=== PATIENT | male | born 1980 | race Caucasian/White ===

== ENCOUNTER 2018-04-11 12:02 | Emergency (ER) | payer MEDICARE, MEDICAID, OTHER ==
[~2018-04-11] VITALS: Ht 182.9 cm; Wt 76.6 kg
[~2018-04-11 12:02] MED LIST: METH-360 PO
[2018-04-11] MEDS ORDERED: ondansetron/PF 4mg/2ml inj IV ONE (13:20)
[2018-04-11] MEDS ORDERED: normal saline 1000ML IV soln IVB ONE (13:20)
[2018-04-11] MEDS ORDERED: iohexol 300mg/ml 100ml inj. ONE (13:23)
[2018-04-11] MEDS: MORPHINE 2MG in 2ml NS syringe IV PRN ×2 (13:28→14:08)
[2018-04-11] MEDS ORDERED: HYDROcodone/acetaminophen 10/325mg tab PO ONE (14:50)
[2018-04-11] MEDS ORDERED: oxyCODONE/APAP 10/325mg tablet PO ONE (14:55)
[2018-04-11] MEDS ORDERED: ONDA4TAB9 PO (14:56)
[2018-04-11] MEDS ORDERED: OXYC-150 PO (14:56)
[2018-04-11 15:11] VITALS: BP 136/86
== END 2018-04-11 15:12 | disposition home or self-care (01) ==
LOC: ER 12:03
DX: S06.0X9A Concussion with loss of consciousness of unspecified duration, initial encounter (principal); S30.1XXA Contusion of abdominal wall, initial encounter; M79.1 Myalgia; M54.5 Low back pain; G89.29 Other chronic pain; M51.36 Other intervertebral disc degeneration, lumbar region; Y08.89XA Assault by other specified means, initial encounter; Y93.89 Activity, other specified; Y92.009 Unspecified place in unspecified non-institutional (private) residence as the place of occurrence of the external cause; Y99.8 Other external cause status
CPT/HCPCS: 70450; 71260; 74177; 93005; 96374; 96375; 96376; 99284; J2274; J2405; J7030; Q9967

== ENCOUNTER 2018-06-12 04:44 | Emergency (ER) | payer MEDICARE, MEDICAID, OTHER ==
[~2018-06-12] VITALS: Ht 182.9 cm; Wt 70.5 kg
[~2018-06-12 04:44] MED LIST changes: +OXYC-150 PO
[2018-06-12 04:53] VITALS: BP 133/83
[2018-06-12] MEDS ORDERED: HYDROcodone/acetaminophen 10/325mg tab PO ONE (05:15)
[2018-06-12] MEDS ORDERED: cloNIDine 0.1 mg tablet PO ONE (05:15)
[2018-06-12] MEDS ORDERED: ondansetron 4mg rapidly disintigrating tab PO ONE (05:15)
[2018-06-12 05:23] LABS: BASOPHILS # (AUTO) 0.1 X10'3 (0-0.2); BASOPHILS % (AUTO) 1.1 % (0-1); EOSINOPHILS # (AUTO) 0.3 X10'3 (0-0.9); EOSINOPHILS % (AUTO) 3.5 % (0-6); HEMATOCRIT 43.3 % (42.0-52.0); HEMOGLOBIN 14.6 g/dl (14.0-17.9); LYMPHOCYTES # (AUTO) 2.8 X10'3 (1.1-4.8); LYMPHOCYTES % (AUTO) 37.4 % (21-51); MEAN CORPUSCULAR HEMOGLOBIN 31.6 PG (27.0-31.0); MEAN CORPUSCULAR HGB CONC 33.7 % (33.0-36.5); MEAN CORPUSCULAR VOLUME 93.8 FL (78-98); MEAN PLATELET VOLUME 8.7 FL (7.4-10.4); MONOCYTES # (AUTO) 0.4 X10'3 (0-0.9); MONOCYTES % (AUTO) 5.7 % (2-12); NEUTROPHILS # (AUTO) 3.9 X10'3 (1.8-7.7); NEUTROPHILS % (AUTO) 52.3 % (42-75); PLATELET COUNT 262 X10'3 (140-440); RED BLOOD COUNT 4.61 X10'6 (4.70-6.10); RED CELL DISTRIBUTION WIDTH 13.3 % (11.5-14.5); WHITE BLOOD COUNT 7.5 X10'3 (4.5-11.0)
[2018-06-12 05:39] LABS: ALANINE AMINOTRANSFERASE 27 U/L (12-78); ALBUMIN 4.2 G/DL (3.4-5.0); ALBUMIN/GLOBULIN RATIO 1.3 (1.1-1.5); ALKALINE PHOSPHATASE 51 IU/L (46-116); ANION GAP 10 (8-16); ASPARTATE AMINO TRANSFERASE 10 U/L (10-37); BILIRUBIN,TOTAL 0.4 MG/DL (0.1-1.0); BLOOD UREA NITROGEN 8 MG/DL (7-18); BUN/CREATININE RATIO 7.8 (5.4-32.0); CALCIUM 9.6 MG/DL (8.5-10.1); CHLORIDE 106 MMOL/L (99-107); CREATINE KINASE 124 U/L (39-308); CREATININE 1.03 MG/DL (0.60-1.10); GLUCOSE 93 MG/DL (70-104); LIPASE 402 U/L (73-393); POTASSIUM 3.7 MMOL/L (3.5-5.1); SODIUM 142 MMOL/L (135-145); TOTAL CARBON DIOXIDE 25.6 MMOL/L (24-32); TOTAL PROTEIN 7.5 G/DL (6.4-8.2); eGFR 81 ML/MIN
[2018-06-12 05:41] LABS: PROTHROMBIN TIME 10.5 SECONDS (9.0-12.0)
[2018-06-12 06:05] LABS: CLARITY,URINE CLEAR (Clear); COLOR,URINE YELLOW (Yellow); GLUCOSE, URINE NEGATIVE (Neg); KETONES,URINE NEGATIVE (Neg); LEUKOCYTE ESTERASE ,URINE NEGATIVE (Neg); NITRITES, URINE NEGATIVE (Neg); OCCULT BLOOD,URINE NEGATIVE (Neg); PH,URINE 6.5 (4.8-8.0); PROTEIN,URINE NEGATIVE (Neg); UROBILINOGEN,URINE 0.2 E.U/dL (0.2-1.0)
[2018-06-12 06:13] LABS: UA COLLECTION TYPE CLN CATCH MIDSTREAM
== END 2018-06-12 06:07 | disposition home or self-care (01) ==
LOC: ER 04:45
DX: F11.23 Opioid dependence with withdrawal (principal); R10.12 Left upper quadrant pain; G89.29 Other chronic pain; Z98.890 Other specified postprocedural states; Z79.899 Other long term (current) drug therapy
CPT/HCPCS: 36415; 80053; 81003; 82550; 83690; 85025; 85610; 99284

== ENCOUNTER 2019-05-22 07:11 | Emergency (ER) | payer MEDICARE, MEDICAID, OTHER ==
[~2019-05-22] VITALS: Ht 182.9 cm; Wt 79.5 kg
[2019-05-22] MEDS ORDERED: famotidine/PF 10 mg/ml inj IV ONE (07:20)
[2019-05-22] MEDS ORDERED: normal saline 1000ML IV soln IVB ONE (07:20)
[2019-05-22] MEDS ORDERED: ondansetron/PF 4mg/2ml inj IV ONE (07:20)
[2019-05-22] MEDS ORDERED: mag hydrox/Alum hydrox/simeth 30ml oral suspension PO ONE (07:25)
[2019-05-22] MEDS ORDERED: proCHLORperazine 10 MG/2 ml inj IV ONE (07:25)
[2019-05-22] MEDS ORDERED: ketorolac trometh. 30mg/ml inj. IV ONE (07:25)
[2019-05-22] MEDS ORDERED: LIDOcaine Viscous 15ml cup PO ONE (07:25)
[2019-05-22] MEDS ORDERED: acetaminophen 325mg tablet PO ONE (08:05)
[2019-05-22] MEDS ORDERED: diphenhydrAMINE 50 mg/ml inj IV ONE (08:05)
[2019-05-22] MEDS ORDERED: LORazepam 2 mg/ml vial IV ONE (08:05)
[2019-05-22] MEDS ORDERED: sucralfate 1gm/10ml UD suspension PO ONE (09:05)
[2019-05-22] MEDS ORDERED: pantoprazole 40 MG vial IV ONE (09:05)
[2019-05-22] MEDS ORDERED: SUMAtriptan succ. 6 MG/0.5ml vial SQ ONE (09:15)
[2019-05-22] MEDS ORDERED: normal saline 1000ml 1,000 ML IV ONE (09:15)
[2019-05-22] MEDS ORDERED: ESOMEPRAZOLE 40 MG VIAL IV ONE (10:00)
[2019-05-22] MEDS ORDERED: FAMO-128 PO (10:22)
[2019-05-22] MEDS ORDERED: ONDA8TAB6 PO (10:22)
[2019-05-22 10:42] VITALS: BP 127/80
== END 2019-05-22 10:44 | disposition home or self-care (01) ==
LOC: ER 07:12
DX: G43.909 Migraine, unspecified, not intractable, without status migrainosus (principal); R11.2 Nausea with vomiting, unspecified; G89.29 Other chronic pain; Z79.899 Other long term (current) drug therapy; Z98.890 Other specified postprocedural states
CPT/HCPCS: 96361; 96372; 96374; 96375; 99284; J0780; J1200; J1885; J2060; J2405; J3490; J7030; 99283; J3030

== ENCOUNTER 2019-12-07 11:21 | Emergency (ER) | payer MEDICARE, MEDICAID ==
[~2019-12-07] VITALS: Ht 182.9 cm; Wt 73.0 kg
[~2019-12-07 11:21] MED LIST changes: +FAMO-128 PO; +ONDA8TAB6 PO
[2019-12-07 11:28] VITALS: BP 133/96
[2019-12-07] MEDS ORDERED: AMIT-189 PO (12:34)
[2019-12-07] MEDS ORDERED: KEP500T PO (12:34)
[2019-12-07] MEDS ORDERED: OXYC-150 PO (12:34)
[2019-12-07] MEDS ORDERED: NORT25CA5 PO (12:45)
--- NOTE | 2019-12-07 12:49 | NUR ---
RX CHANGED BY PROVIDER FROM AMITRIPTYLINE TO NORTRIPTYLINE
== END 2019-12-07 12:50 | disposition home or self-care (01) ==
LOC: ER 11:22
DX: G89.29 Other chronic pain (principal); F32.9 Major depressive disorder, single episode, unspecified; G40.909 Epilepsy, unspecified, not intractable, without status epilepticus; Z76.0 Encounter for issue of repeat prescription; Z98.890 Other specified postprocedural states; Z79.899 Other long term (current) drug therapy
CPT/HCPCS: 99284

== ENCOUNTER 2020-02-27 07:36 | Emergency (ER) | payer MEDICARE, MEDICAID ==
[~2020-02-27] VITALS: Ht 182.9 cm; Wt 77.3 kg
[~2020-02-27 07:36] MED LIST changes: +KEP500T PO; +NORT25CA5 PO
[2020-02-27 07:37] VITALS: BP 130/85
[2020-02-27] MEDS ORDERED: HYDR-3965 PO (07:46)
[2020-02-27] MEDS ORDERED: CYCL-1 PO (07:46)
== END 2020-02-27 07:53 | disposition home or self-care (01) ==
LOC: ER 07:36
DX: M54.5 Low back pain (principal); G89.29 Other chronic pain; Z98.890 Other specified postprocedural states
CPT/HCPCS: 99284

== ENCOUNTER 2020-03-12 08:38 | Emergency (ER) | payer OTHER, MEDICARE, MEDICAID ==
[~2020-03-12] VITALS: Ht 182.9 cm; Wt 79.5 kg
[~2020-03-12 08:38] MED LIST changes: +CYCL-1 PO
[2020-03-12] MEDS ORDERED: HYDROcodone/acetaminophen 5mg/325mg tablet PO ONE (10:05)
[2020-03-12] MEDS ORDERED: HYDR-3965 PO (11:04)
[2020-03-12 11:22] VITALS: BP 122/72
== END 2020-03-12 11:28 | disposition home or self-care (01) ==
LOC: ER 08:38
DX: G89.29 Other chronic pain (principal); M54.5 Low back pain; Z98.890 Other specified postprocedural states; Z79.899 Other long term (current) drug therapy
CPT/HCPCS: 72131; 99284

== ENCOUNTER 2023-02-24 08:08 | Emergency (ER) | payer OTHER, MEDICARE, MEDICAID ==
[~2023-02-24] VITALS: Ht 182.9 cm; Wt 77.3 kg
[2023-02-24] MEDS ORDERED: ibuprofen tablet 400 MG TABLET PO ONE (09:00)
[2023-02-24] MEDS ORDERED: oxyCODONE/APAP 5-325mg tablet PO ONE (09:00)
[2023-02-24] MEDS ORDERED: LIDO-15 TP (09:55)
[2023-02-24] MEDS ORDERED: MELO-102 PO (09:55)
[2023-02-24 10:09] VITALS: BP 122/78
== END 2023-02-24 10:11 | disposition home or self-care (01) ==
LOC: ER 08:09
DX: G89.29 Other chronic pain (principal); M54.59 Other low back pain; Z79.899 Other long term (current) drug therapy; Z79.1 Long term (current) use of non-steroidal anti-inflammatories (NSAID); Z79.2 Long term (current) use of antibiotics
CPT/HCPCS: 72131; 99284

== ENCOUNTER 2024-01-27 09:09 | Outpatient (CLI) | payer MEDICARE, MEDICAID ==
[~2024-01-27 09:09] MED LIST changes: +LIDO-15 TP; +MELO-102 PO
== END 2024-01-27 23:59 | disposition home or self-care (01) ==
LOC: RAD 09:09
PROVIDERS: ATTEND Family Medicine
DX: K80.20 Calculus of gallbladder without cholecystitis without obstruction (principal)
CPT/HCPCS: 76700

== ENCOUNTER 2024-02-26 19:02 | Inpatient (IN) | payer MEDICARE, MEDICAID ==
[~2024-02-26] VITALS: Ht 182.9 cm; Wt 74.1 kg
[2024-02-26 20:07] LABS: BASOPHILS % (AUTO) 0.3 % (0-1); EOSINOPHILS % (AUTO) 0.2 % (0-6); HEMATOCRIT 45.5 % (42.0-52.0); HEMOGLOBIN 15.5 g/dl (14.0-17.9); LYMPHOCYTES # (AUTO) 0.9 X10'3 (1.1-4.8); LYMPHOCYTES % (AUTO) 6.3 % (21-51); MEAN CORPUSCULAR HEMOGLOBIN 31.1 PG (27.0-31.0); MEAN CORPUSCULAR HGB CONC 34.2 g/dL (33.0-36.5); MEAN CORPUSCULAR VOLUME 91.1 FL (78-98); MEAN PLATELET VOLUME 8.6 FL (7.4-10.4); MONOCYTES # (AUTO) 0.6 X10'3 (0-0.9); MONOCYTES % (AUTO) 4.2 % (2-12); NEUTROPHILS # (AUTO) 12.7 X10'3 (1.8-7.7); PLATELET COUNT 294 X10'3 (140-440); RED BLOOD COUNT 4.99 X10'6 (4.70-6.10); RED CELL DISTRIBUTION WIDTH 13.1 % (11.5-14.5); WHITE BLOOD COUNT 14.3 X10'3 (4.5-11.0)
[2024-02-26 20:18] LABS: ALBUMIN 4.3 G/DL (3.4-5.0); ANION GAP 17 (8-16); BLOOD UREA NITROGEN 13 MG/DL (7-18); BUN/CREATININE RATIO 11.4 (10.0-20.0); CHLORIDE 102 MMOL/L (99-107); CREATININE 1.14 MG/DL (0.60-1.10); GLUCOSE 116 MG/DL (70-104); LIPASE 25 U/L (16-77); POTASSIUM 3.1 MMOL/L (3.5-5.1); SODIUM 138 MMOL/L (135-145); eCRCL 87 ML/MIN; eGFR 70 ML/MIN
[2024-02-26] MEDS: ondansetron/PF 4mg/2ml inj IV ONE (20:40)
[2024-02-26] MEDS: normal saline 1000ML IV soln IVB ONE (20:40)
[2024-02-26] MEDS: diphenhydrAMINE 50 mg/ml inj IV ONE (21:02)
[2024-02-26] MEDS: metoclopramide 5 mg/ml inj IV ONE (21:02)
[2024-02-26 21:07] LABS: ETHANOL < 10 MG/DL (<10)
[2024-02-26] MEDS ORDERED: iohexol 300mg/ml 100ml inj. ONE (21:19)
[2024-02-26] MEDS: morphine 4 MG/ML inj SYRINge IV ONE (22:51)
[2024-02-26] MEDS ORDERED: morphine 2 MG/ML inj. syringe IV PRN (23:10)
[2024-02-26 23:19] LABS: ALANINE AMINOTRANSFERASE 29 U/L (12-78); ALBUMIN/GLOBULIN RATIO 1.1 (1.1-1.5); ALKALINE PHOSPHATASE 62 IU/L (46-116); ASPARTATE AMINO TRANSFERASE 19 U/L (10-37); BILIRUBIN,DIRECT 0.3 MG/DL (0-0.3); BILIRUBIN,TOTAL 1.2 MG/DL (0.1-1.0); TOTAL PROTEIN 8.1 G/DL (6.4-8.2)
[2024-02-26] MEDS ORDERED: potassium Cl 40MEQ/1/2NS 520ml 520 ML IV PRN (23:50)
[2024-02-26] MEDS ORDERED: HYDROcodone/acetaminophen 5mg/325mg tablet PO PRN (23:50)
[2024-02-26] MEDS ORDERED: magnesium Cl slow-release 64mg tablet PO PRN (23:50)
[2024-02-26] MEDS ORDERED: magnesium 2GM in 50ml NS 50 ML IV PRN (23:50)
[2024-02-26] MEDS ORDERED: magnesium 4gm in 100ml NS 100 ML IV PRN (23:50)
[2024-02-26] MEDS ORDERED: acetaminophen 325mg tablet PO PRN ×2 (23:50)
[2024-02-26] MEDS ORDERED: potassium Cl 20 mEq SR tablet PO PRN ×2 (23:50)
[2024-02-26 23:51] LABS: BILIRUBIN,URINE NEGATIVE (Neg); CLARITY,URINE CLEAR (Clear); COLOR,URINE YELLOW (Yellow); GLUCOSE, URINE NEGATIVE (Neg); KETONES,URINE 15 mg/dl (Neg); LEUKOCYTE ESTERASE ,URINE NEGATIVE (Neg); NITRITES, URINE NEGATIVE (Neg); OCCULT BLOOD,URINE NEGATIVE (Neg); PROTEIN,URINE NEGATIVE (Neg); UROBILINOGEN,URINE 0.2 E.U/dL (0.2-1.0)
[2024-02-26] MEDS: potassium Cl 20mEq in D5-NS 1,000 ML IV SCH (23:51)
[2024-02-26 23:52] LABS: UA COLLECTION TYPE URINAL
[2024-02-26] MEDS: piperacillin/tazo 4.5gm/100ml 100 ML IV STA (23:52)
[2024-02-27] VITALS (17 sets, daily range): BP systolic 100–159; BP diastolic 63–112; PULSE 55–90; RESP 9–18; TEMP 97.2–99; O2SAT 94–100
[2024-02-27] MEDS ORDERED: piperacillin/tazo 3.375gm/50ml 50 ML IV SCH
[2024-02-27 00:04] LABS: URINE AMPHETAMINE SCREEN NEGATIVE (Neg); URINE BARBITUATE SCREEN NEGATIVE (Neg); URINE BENZODIAZEPINES SCREEN NEGATIVE (Neg); URINE CANNABINOID SCREEN POSITIVE (Neg); URINE COCAINE SCREEN NEGATIVE (Neg); URINE METHADONE SCREEN NEGATIVE (Neg); URINE OPIATE SCREEN NEGATIVE (Neg); URINE PHENCYCLIDINE SCREEN NEGATIVE (Neg)
[2024-02-27 01:11] LABS: BASOPHILS % (AUTO) 0.3 % (0-1); EOSINOPHILS % (AUTO) 0.3 % (0-6); HEMATOCRIT 39.5 % (42.0-52.0); HEMOGLOBIN 13.8 g/dl (14.0-17.9); LYMPHOCYTES # (AUTO) 0.9 X10'3 (1.1-4.8); LYMPHOCYTES % (AUTO) 9.5 % (21-51); MEAN CORPUSCULAR HEMOGLOBIN 31.7 PG (27.0-31.0); MEAN CORPUSCULAR VOLUME 90.6 FL (78-98); MEAN PLATELET VOLUME 8.4 FL (7.4-10.4); MONOCYTES # (AUTO) 0.5 X10'3 (0-0.9); NEUTROPHILS # (AUTO) 7.8 X10'3 (1.8-7.7); NEUTROPHILS % (AUTO) 84.9 % (42-75); PLATELET COUNT 237 X10'3 (140-440); RED BLOOD COUNT 4.37 X10'6 (4.70-6.10); WHITE BLOOD COUNT 9.1 X10'3 (4.5-11.0)
[2024-02-27] MEDS ORDERED: morphine 2 MG/ML inj. syringe IV PRN ×2 (01:20→07:40)
[2024-02-27] MEDS: HYDROcodone/acetaminophen 10/325mg tab PO PRN (01:55)
[2024-02-27] MEDS: normal saline 1000ml 1,000 ML IV SCH (02:00)
[2024-02-27] MEDS: ondansetron/PF 4mg/2ml inj IV PRN (04:41)
[2024-02-27] MEDS ORDERED: LIDOcaine 1% 30ml preserv. free vial ONE (07:20)
[2024-02-27 07:24] LABS: ALANINE AMINOTRANSFERASE 16 U/L (12-78); ALBUMIN 3.1 G/DL (3.4-5.0); ALBUMIN/GLOBULIN RATIO 0.9 (1.1-1.5); ALKALINE PHOSPHATASE 53 IU/L (46-116); ANION GAP 10 (8-16); ASPARTATE AMINO TRANSFERASE 12 U/L (10-37); BILIRUBIN,TOTAL 0.9 MG/DL (0.1-1.0); BLOOD UREA NITROGEN 10 MG/DL (7-18); BUN/CREATININE RATIO 9.9 (10.0-20.0); CALCIUM 7.9 MG/DL (8.5-10.1); CHLORIDE 110 MMOL/L (99-107); CREATININE 1.01 MG/DL (0.60-1.10); GLUCOSE 98 MG/DL (70-104); POTASSIUM 3.6 MMOL/L (3.5-5.1); SODIUM 142 MMOL/L (135-145); TOTAL PROTEIN 6.4 G/DL (6.4-8.2); eCRCL 99 ML/MIN; eGFR 81 ML/MIN
[2024-02-27] MEDS: ringers solution, lacted 1,000 ML IV SCH (07:40)
[2024-02-27] MEDS ORDERED: labetalol 20mg/4ml (5mg/ml) syringe IV PRN (07:40)
[2024-02-27] MEDS ORDERED: enalaprilat dihydrate 2.5mg/2ml vial IV PRN (07:40)
[2024-02-27] MEDS ORDERED: meperidine/PF 25mg/ml syringe IV PRN ×2 (07:40)
[2024-02-27] MEDS: morphine 2 MG/ML inj. syringe IV PRN (07:40)
[2024-02-27] MEDS ORDERED: ondansetron/PF 4mg/2ml inj IV PRN ×2 (07:40→11:00)
[2024-02-27] MEDS: piperacillin/tazo 3.375gm/50ml 50 ML IV SCH (07:40)
[2024-02-27] MEDS: heparin, porcine 5000 units/ml vial SQ SCH (07:43)
[2024-02-27] MEDS: INDOCYANINE GREEN 25 MG/10 ML VIAL IV ONE (07:52)
[2024-02-27] MEDS ORDERED: midazolam 1 mg/ML 2ml injection ONE ×2 (08:53→09:50)
[2024-02-27] MEDS ORDERED: fentaNYL/PF 50MCG/1 ML 2ML syringe ONE ×2 (08:53→10:11)
[2024-02-27] MEDS ORDERED: LIDOcaine 2% (20mg/ml) 5ml vial ONE (08:54)
[2024-02-27] MEDS ORDERED: propofol inj 20 ML IV ONE (08:54)
[2024-02-27] MEDS ORDERED: rocuronium 10mg/ml inj IV ONE (09:30)
[2024-02-27] MEDS ORDERED: sevoflurane 250ml liquid IH ONE (09:37)
[2024-02-27] MEDS: BUPIVAcaine/PF 2.5mg/ml (0.25%) 10ml vial ONE (10:15)
[2024-02-27] MEDS ORDERED: ondansetron/PF 4mg/2ml inj ONE (10:42)
[2024-02-27] MEDS ORDERED: ketorolac trometh. 30mg/ml inj. ONE (10:42)
[2024-02-27] MEDS ORDERED: acetaminophen 1,000mg/100ml IV 100 ML IV ONE (10:45)
[2024-02-27] MEDS ORDERED: morphine 4 MG/ML inj SYRINge ONE (10:58)
[2024-02-27] MEDS ORDERED: naloxone 0.4 mg/ml inj IV PRN (11:00)
[2024-02-27] MEDS ORDERED: HYDROcodone/acetaminophen 10/325mg tab PO PRN (11:00)
[2024-02-27] MEDS: meperidine/PF 25mg/ml syringe IV PRN (11:23)
[2024-02-27] MEDS: morphine 4 MG/ML inj SYRINge IV PRN (11:54)
[2024-02-27] MEDS: proCHLORperazine 10 MG/2 ml inj IV PRN (12:08)
[2024-02-28] MEDS: simethicone 125mg capsule PO PRN (00:14)
[2024-02-28] MEDS: ketorolac trometh. 30mg/ml inj. IV PRN (00:52)
[2024-02-28 02:00] VITALS: BP 123/72; PULSE 53; RESP 14; TEMP 97.8; O2SAT 98
[2024-02-28 06:00] VITALS: BP 121/64; PULSE 59; RESP 18; TEMP 98.8; O2SAT 97
[2024-02-28 07:20] LABS: BASOPHILS % (AUTO) 0.3 % (0-1); EOSINOPHILS % (AUTO) 0.4 % (0-6); HEMATOCRIT 36.9 % (42.0-52.0); HEMOGLOBIN 12.6 g/dl (14.0-17.9); LYMPHOCYTES # (AUTO) 1.7 X10'3 (1.1-4.8); MEAN CORPUSCULAR HEMOGLOBIN 31.4 PG (27.0-31.0); MEAN CORPUSCULAR HGB CONC 34.2 g/dL (33.0-36.5); MEAN CORPUSCULAR VOLUME 91.6 FL (78-98); MEAN PLATELET VOLUME 8.8 FL (7.4-10.4); MONOCYTES # (AUTO) 0.8 X10'3 (0-0.9); MONOCYTES % (AUTO) 10.7 % (2-12); NEUTROPHILS # (AUTO) 5.2 X10'3 (1.8-7.7); NEUTROPHILS % (AUTO) 66.6 % (42-75); PLATELET COUNT 214 X10'3 (140-440); RED BLOOD COUNT 4.03 X10'6 (4.70-6.10); RED CELL DISTRIBUTION WIDTH 13.2 % (11.5-14.5); WHITE BLOOD COUNT 7.9 X10'3 (4.5-11.0)
[2024-02-28 07:30] VITALS: RESP 18
[2024-02-28] MEDS: morphine 2 MG/ML inj. syringe IV PRN (07:32)
[2024-02-28 07:39] LABS: ALANINE AMINOTRANSFERASE 79 U/L (12-78); ALKALINE PHOSPHATASE 52 IU/L (46-116); ANION GAP 9 (8-16); ASPARTATE AMINO TRANSFERASE 53 U/L (10-37); BILIRUBIN,TOTAL 0.9 MG/DL (0.1-1.0); BLOOD UREA NITROGEN 7 MG/DL (7-18); BUN/CREATININE RATIO 7.5 (10.0-20.0); CALCIUM 8.1 MG/DL (8.5-10.1); CHLORIDE 108 MMOL/L (99-107); CREATININE 0.93 MG/DL (0.60-1.10); GLUCOSE 96 MG/DL (70-104); POTASSIUM 3.7 MMOL/L (3.5-5.1); SODIUM 140 MMOL/L (135-145); TOTAL CARBON DIOXIDE 22.8 MMOL/L (24-32); TOTAL PROTEIN 6.1 G/DL (6.4-8.2); eCRCL 107 ML/MIN; eGFR 89 ML/MIN
[2024-02-28 10:00] VITALS: BP 118/85; PULSE 74; RESP 16; TEMP 98.4; O2SAT 99
[2024-02-28 11:22] VITALS: RESP 18
[2024-02-28] MEDS ORDERED: TRAM50TA2 PO (11:35)
== END 2024-02-28 13:25 | disposition home or self-care (01) | DRG 418 ==
LOC: ER 19:02 → ED HOLD 23:50 → UNDOADMIN 02-27 00:25 → ORTHO 4S 02-27 01:30 → ED HOLD 02-27 01:30 → ORTHO 4S 02-28 02:26
PROVIDERS: ADMIT Internal Medicine; ATTEND Internal Medicine
PROC: BW2F1ZZ Computerized Tomography (CT Scan) of Neck using Low Osmolar Contrast (ICD-10-PCS; 2024-02-26)
PROC: 8E0W4CZ Robotic Assisted Procedure of Trunk Region, Percutaneous Endoscopic Approach (ICD-10-PCS; 2024-02-27)
PROC: 0FT44ZZ Resection of Gallbladder, Percutaneous Endoscopic Approach (ICD-10-PCS; principal; 2024-02-27 09:37)
DX: K80.00 Calculus of gallbladder with acute cholecystitis without obstruction (principal); E87.20 Acidosis, unspecified; G89.29 Other chronic pain; E87.6 Hypokalemia; K66.0 Peritoneal adhesions (postprocedural) (postinfection); M54.9 Dorsalgia, unspecified; Z79.899 Other long term (current) drug therapy; Z87.891 Personal history of nicotine dependence
CPT/HCPCS: 36415; 70491; 74176; 76700; 80048; 80053; 80076; 80305; 80320; 81003; 83605; 83690; 83735; 85025; 87040; 87081; 96365; 96375; 99285; A4215; A4618; A6402; A7000; G0378; J0131; J0780; J1100; J1200; J1885; J2175; J2250; J2270; J2405; J2543; J2704; J2710; J2765; J3010; J3480; J3490; J7030; J7120; Q9967

== ENCOUNTER 2024-03-21 13:34 | Emergency (ER) | payer MEDICARE, MEDICAID ==
[~2024-03-21] VITALS: Ht 182.9 cm; Wt 72.5 kg
[~2024-03-21 13:34] MED LIST changes: -CYCL-1 PO; -FAMO-128 PO; -KEP500T PO; -MELO-102 PO; -METH-360 PO; -NORT25CA5 PO; -ONDA8TAB6 PO; -OXYC-150 PO
[2024-03-21 13:46] VITALS: TEMP 97.8
[2024-03-21] MEDS: LIDOcaine 1% 30ml preserv. free vial IJ ONE (14:17)
[2024-03-21] MEDS ORDERED: CEPH-585 PO (15:34)
[2024-03-21 15:38] VITALS: BP 124/78; PULSE 77; RESP 14; O2SAT 100
== END 2024-03-21 15:40 | disposition home or self-care (01) ==
LOC: ER 13:35
DX: S61.012A Laceration without foreign body of left thumb without damage to nail, initial encounter (principal); S61.213A Laceration without foreign body of left middle finger without damage to nail, initial encounter; W26.8XXA Contact with other sharp object(s), not elsewhere classified, initial encounter; Y93.89 Activity, other specified; Y92.89 Other specified places as the place of occurrence of the external cause; Y99.8 Other external cause status
CPT/HCPCS: 12002; 73130; 99283; J7030; A6258; A6449